=== PATIENT | female | born 1995 | race Caucasian/White ===

== ENCOUNTER 2019-06-15 04:01 | Emergency (ER) | payer BC ==
[~2019-06-15] VITALS: Ht 157.5 cm; Wt 72.7 kg
[2019-06-15] MEDS ORDERED: MUCINEX DM 30 M1 TE1 PO (04:11)
[2019-06-15] MEDS ORDERED: PHENTERMINE H37.5 M3 PO (04:12)
[2019-06-15] MEDS ORDERED: CLINDAMYCIN 300MG PO (04:12)
[2019-06-15] MEDS ORDERED: TOPAMAX25 MG PO (04:12)
[2019-06-15] MEDS ORDERED: WELLBUTRIN XL150 M2 PO (04:13)
[2019-06-15] MEDS ORDERED: ZOFRAN ODT4 MG PO (05:58)
[2019-06-15 06:14] VITALS: BP 124/75
== END 2019-06-15 06:14 | disposition home or self-care (01) ==
LOC: ED 04:01
DX: A08.4 Viral intestinal infection, unspecified (principal)

== ENCOUNTER → 2020-05-28 | Outpatient (CLI) | payer BC ==
[~2020-05-28] MED LIST: CLINDAMYCIN 300MG PO; MUCINEX DM 30 M1 TE1 PO; PHENTERMINE H37.5 M3 PO; TOPAMAX25 MG PO; WELLBUTRIN XL150 M2 PO; ZOFRAN ODT4 MG PO
== END ==
LOC: RAD 16:59
DX: M22.8X9 Other disorders of patella, unspecified knee (principal)